=== PATIENT | female | born 1985 | race Caucasian/White ===

== ENCOUNTER 2024-09-02 15:04 | Inpatient (IN) | payer OTHER ==
[~2024-09-02] VITALS: Ht 154.9 cm; Wt 14.5 kg
[2024-09-02 15:34] LABS: BASOPHILS % 0.7 % (0.0-2.0); DIFFERENTIAL COMMENT 0; EOSINOPHILS % 1.1 % (0.0-5.0); HEMATOCRIT. 39.9 % (36.0-48.0); HEMOGLOBIN. 13.5 g/dL (12.0-16.0); LYMPHOCYTES % 17.4 % (20.0-50.0); MEAN CORPUSCULAR HEMOGLOBIN 35.6 pg (28.0-32.0); MEAN CORPUSCULAR HGB CONC 33.8 g/dL (31.0-37.0); MEAN CORPUSCULAR VOLUME 105.3 fL (81.0-99.0); MEAN PLATELET VOLUME 9.7 fl (7.4-10.4); MONOCYTES % 10.4 % (2.0-8.0); NEUTROPHILS % 70.4 % (40.0-76.0); PLATELET 126 x1000/uL (130-400); RED BLOOD CELL COUNT 3.79 mill/uL (4.2-5.4); RED CELL DISTRIBUTION WIDTH 13.8 % (11.6-14.6)
[2024-09-02 15:46] LABS: CHLORIDE 94 mEq/L (98-107); POTASSIUM 3.3 mEq/L (3.5-5.1); SODIUM 134 mEq/L (136-145)
[2024-09-02 15:47] LABS: CALCIUM 9.5 mg/dL (8.7-10.4); CARBON DIOXIDE 21 mEq/L (21-32)
[2024-09-02 15:52] LABS: CREATININE 0.7 mg/dL (0.6-1.0); GLUCOSE 139 mg/dL (70-105); UREA NITROGEN BLOOD 6 mg/dL (9-23)
[2024-09-02 15:53] LABS: ETHANOL BLOOD < 10 mg/dL (<10)
[2024-09-02 16:03] LABS: HCG SCREEN NEGATIVE
[2024-09-02 17:06] LABS: GLUCOSE URINE NEGATIVE (NEGATIVE); KETONES URINE 3+ (NEGATIVE); LEUKOCYTE ESTERASE URINE TRACE (NEGATIVE); NITRITE URINE NEGATIVE (NEGATIVE); OCCULT BLOOD URINE NEGATIVE (NEGATIVE); PROTEIN URINE TRACE (NEGATIVE); SPECIFIC GRAVITY URINE 1.013 (1.005-1.030)
[2024-09-02 17:24] LABS: *AMPHETAMINES SCREEN URINE NEGATIVE (NEGATIVE); *BARBITURATES SCREEN URINE NEGATIVE (NEGATIVE); *BENZODIAZEPINES SCREEN URINE NEGATIVE (NEGATIVE); *COCAINE SCREEN URINE NEGATIVE (NEGATIVE); CANNABINOID URINE SCREEN PRESUMPTIVE POSITIVE (NEGATIVE); ECSTASY MDMA SCREEN URINE NEGATIVE (NEGATIVE); METHADONE URINE SCREEN NEGATIVE (NEGATIVE); OPIATES URINE SCREEN NEGATIVE (NEGATIVE); PHENCYCLIDINE URINE SCREEN NEGATIVE (NEGATIVE)
[2024-09-02 17:45] LABS: COLOR URINE YELLOW (YELLOW)
[2024-09-02 17:46] LABS: CLARITY URINE HAZY (CLEAR)
[2024-09-02 17:48] LABS: RBC URINE 0-2 /hpf (0-2); SQUAMOUS EPITHELIAL CELL URINE FEW /lpf (RARE/1+); WBC URINE 0-2 /hpf (0-2)
[2024-09-02 17:49] LABS: BACTERIA URINE TRACE; URIC ACID CRYSTALS URINE 2+ /lpf
[2024-09-02] MEDS: DIAZEPAM 5 MG TABLET PO ONE (17:49)
[2024-09-02] MEDS: SODIUM CHLORIDE 0.9% 1,000 ML IV ONE (17:49)
[2024-09-02] MEDS: FOLIC ACID 1 MG, THIAMINE HCL 100 MG, MVI, ADULT NO.1 10 ML in DEXTROSE 5% WATER 1,000 ML IV ONE (18:15)
[2024-09-02 22:01] VITALS: BP 123/83; PULSE 88; RESP 18; TEMP 37.1
[2024-09-02] MEDS ORDERED: DEXTROSE 50% WATER 50ML SYRINGE IV PRN (22:45)
[2024-09-02] MEDS ORDERED: ONDANSETRON HCL 4MG/2ML INJ IV PRN (22:45)
[2024-09-03] VITALS: BP 119/68; PULSE 72; RESP 17; TEMP 36.9; O2SAT 98
[2024-09-03] MEDS: POTASSIUM CHLORIDE 20MEQ/PACKET PO NR (00:49)
[2024-09-03 02:14] LABS: ALBUMIN 4.3 g/dL (3.2-4.8); PHOSPHORUS 2.7 mg/dL (2.5-4.9)
[2024-09-03 03:07] LABS: IRON 80 ug/dL (50-170)
[2024-09-03 03:10] LABS: TOTAL IRON BINDING CAPACITY 60 ug/dl (250-425)
[2024-09-03 03:14] LABS: FERRITIN > 1650 ng/mL (10-291); FOLIC ACID (FOLATE) SERUM > 20.00 ng/mL (>5.38)
[2024-09-03 03:15] LABS: VITAMIN B12 SERUM 347 pg/mL (211-911)
[2024-09-03 04:00] VITALS: BP 115/64; PULSE 74; RESP 17; TEMP 36.7; O2SAT 100
[2024-09-03] MEDS: CHLORDIAZEPOXIDE 5 MG CAPSULE PO SCH (06:04)
[2024-09-03 07:08] LABS: BASOPHILS % 0.5 % (0.0-2.0); DIFFERENTIAL COMMENT 0; EOSINOPHILS % 1.3 % (0.0-5.0); HEMATOCRIT. 36.8 % (36.0-48.0); HEMOGLOBIN. 12.5 g/dL (12.0-16.0); LYMPHOCYTES % 17.7 % (20.0-50.0); MEAN CORPUSCULAR HEMOGLOBIN 35.6 pg (28.0-32.0); MEAN CORPUSCULAR HGB CONC 33.9 g/dL (31.0-37.0); MEAN CORPUSCULAR VOLUME 104.9 fL (81.0-99.0); MEAN PLATELET VOLUME 10.5 fl (7.4-10.4); MONOCYTES % 11.4 % (2.0-8.0); NEUTROPHILS % 69.1 % (40.0-76.0); PLATELET 107 x1000/uL (130-400); RED BLOOD CELL COUNT 3.51 mill/uL (4.2-5.4); RED CELL DISTRIBUTION WIDTH 13.8 % (11.6-14.6); WHITE BLOOD COUNT 6.3 x1000/uL (4.5-11.0)
[2024-09-03 07:17] LABS: CHLORIDE 102 mEq/L (98-107); POTASSIUM 3.5 mEq/L (3.5-5.1); SODIUM 139 mEq/L (136-145)
[2024-09-03 07:18] LABS: CALCIUM 8.8 mg/dL (8.7-10.4); CARBON DIOXIDE 23 mEq/L (21-32)
[2024-09-03 07:22] LABS: TRIGLYCERIDE 53 mg/dL (0-150)
[2024-09-03 07:23] LABS: CREATININE 0.5 mg/dL (0.6-1.0); GLUCOSE 75 mg/dL (70-105)
[2024-09-03 07:24] LABS: LDL CHOLESTEROL 33 mg/dL (5-100); UREA NITROGEN BLOOD < 5 mg/dL (9-23)
[2024-09-03 07:25] LABS: ALANINE AMINOTRANSFERASE 165 IU/L (10-49); ALBUMIN 4.1 g/dL (3.2-4.8); ASPARTATE AMINOTRANSFERASE 143 IU/L (<34); BILIRUBIN DIRECT 0.4 mg/dL (<=3.0); CHOLESTEROL 139 mg/dL (<200); CREATINE KINASE 188 IU/L (34-145); HDL CHOLESTEROL 77 mg/dL (>65)
[2024-09-03 07:26] LABS: PROTEIN TOTAL 6.3 g/dL (6.0-8.3); THYROID STIMULATING HORMONE 2.31 uIU/mL (0.55-4.78)
[2024-09-03 08:00] VITALS: BP 108/66; PULSE 64; RESP 18; TEMP 36.7; O2SAT 98
[2024-09-03] MEDS: THIAMINE HCL 100MG TABLET PO SCH (10:08)
[2024-09-03] MEDS: MULTIVITAMINS,THER W-MINERALS TABLET PO SCH (10:08)
[2024-09-03 11:48] LABS: PROTHROMBIN TIME 10.8 sec (9.6-11.0)
[2024-09-03 12:00] VITALS: BP 117/64; PULSE 74; RESP 18; TEMP 36.4; O2SAT 99
[2024-09-03] MEDS: MAGNESIUM 2 G PREMIX 50 ML IV NR (13:11)
[2024-09-03] MEDS: LORAZEPAM 2MG/ML UD SYRINGE IV PRN (13:11)
[2024-09-03] MEDS: CHLORDIAZEPOXIDE 25MG CAPSULE PO SCH (13:55)
[2024-09-03 16:00] VITALS: BP 124/76; PULSE 88; RESP 18; TEMP 36; O2SAT 98
[2024-09-03 17:38] LABS: CREATINE KINASE 125 IU/L (34-145)
[2024-09-04] VITALS: BP 114/72; PULSE 94; RESP 18; TEMP 37.1; O2SAT 99
[2024-09-04 04:00] VITALS: BP 106/73; PULSE 98; RESP 18; TEMP 37.3; O2SAT 100
[2024-09-04 07:14] LABS: BASOPHILS % 0.7 % (0.0-2.0); DIFFERENTIAL COMMENT 0; EOSINOPHILS % 2.8 % (0.0-5.0); HEMATOCRIT. 38.4 % (36.0-48.0); HEMOGLOBIN. 12.8 g/dL (12.0-16.0); MEAN CORPUSCULAR HEMOGLOBIN 35.7 pg (28.0-32.0); MEAN CORPUSCULAR HGB CONC 33.4 g/dL (31.0-37.0); MEAN CORPUSCULAR VOLUME 106.8 fL (81.0-99.0); MEAN PLATELET VOLUME 9.6 fl (7.4-10.4); MONOCYTES % 12.3 % (2.0-8.0); NEUTROPHILS % 65.2 % (40.0-76.0); PLATELET 125 x1000/uL (130-400); RED BLOOD CELL COUNT 3.59 mill/uL (4.2-5.4); RED CELL DISTRIBUTION WIDTH 13.6 % (11.6-14.6); WHITE BLOOD COUNT 5.4 x1000/uL (4.5-11.0)
[2024-09-04 07:19] LABS: CARBON DIOXIDE 24 mEq/L (21-32); CHLORIDE 104 mEq/L (98-107); POTASSIUM 3.3 mEq/L (3.5-5.1); SODIUM 139 mEq/L (136-145)
[2024-09-04 07:20] LABS: CALCIUM 9.1 mg/dL (8.7-10.4)
[2024-09-04 07:24] LABS: CREATININE 0.6 mg/dL (0.6-1.0); UREA NITROGEN BLOOD 6 mg/dL (9-23)
[2024-09-04 07:25] LABS: GLUCOSE 95 mg/dL (70-105)
[2024-09-04 07:26] LABS: ALANINE AMINOTRANSFERASE 176 IU/L (10-49); ALBUMIN 4.1 g/dL (3.2-4.8); ASPARTATE AMINOTRANSFERASE 154 IU/L (<34)
[2024-09-04 07:27] LABS: BILIRUBIN DIRECT 0.3 mg/dL (<=3.0); BILIRUBIN TOTAL 0.6 mg/dL (0.1-1.0); PHOSPHORUS 4.3 mg/dL (2.5-4.9); PROTEIN TOTAL 6.4 g/dL (6.0-8.3)
[2024-09-04 08:00] VITALS: BP 121/72; PULSE 90; RESP 18; TEMP 36.6; O2SAT 99
[2024-09-04] MEDS: MAGNESIUM OXIDE 400MG TABLET PO SCH (09:36)
[2024-09-04] MEDS: POTASSIUM CHLORIDE 20MEQ TABLET SR PO NR (09:36)
[2024-09-04 10:44] VITALS: BP 121/72; PULSE 90; TEMP 97.8; O2SAT 99
== END 2024-09-04 12:30 | disposition home or self-care (01) | DRG 100 ==
LOC: ER 15:04 → 6WST 20:02 → EDBEDREQTM 20:21 → EDBEDREQ 20:21 → ENRESERV 20:36
PROVIDERS: ADMIT Hospitalist; ATTEND Hospitalist
PROC: 4A00X4Z Measurement of Central Nervous Electrical Activity, External Approach (ICD-10-PCS; principal; 2024-09-04)
DX: R56.9 Unspecified convulsions (principal); G93.41 Metabolic encephalopathy; F10.139 Alcohol abuse with withdrawal, unspecified; E87.1 Hypo-osmolality and hyponatremia; E87.6 Hypokalemia; D75.89 Other specified diseases of blood and blood-forming organs; K76.0 Fatty (change of) liver, not elsewhere classified; F12.90 Cannabis use, unspecified, uncomplicated; Y90.9 Presence of alcohol in blood, level not specified
CPT/HCPCS: 36415; 71045; 76700; 80048; 80061; 80076; 80305; 80320; 81003; 82040; 82550; 82607; 82728; 82746; 82962; 83036; 83540; 83550; 83605; 83735; 84100; 84425; 84439; 84443; 84703; 85025; 93005; 95816; 96365; 96366; 99291; A4606; J2060; J3411; J3475; J3490; J7030; J7070; G0480